=== PATIENT | female | born 1985 | race American Indian/Alaskan Native ===

== ENCOUNTER 2018-01-30 11:57 | Emergency (ER) | payer OTHER ==
[2018-01-30 12:03] VITALS: BMI 27.4
[2018-01-30 12:04] VITALS: RESP 18
[2018-01-30] MEDS ORDERED: Sodium Chloride 0.9% 1,000 ML IV STA (12:08)
[2018-01-30 12:34] LABS: PH,URINE 6.5 (4.7-8.0); URINE BILIRUBIN NEGATIVE (NEGATIVE); URINE BLOOD SMALL (NEGATIVE); URINE GLUCOSE (UA) NEGATIVE (NEGATIVE); URINE LEUKOCYTE ESTERASE NEGATIVE Leu/uL (NEGATIVE); URINE PROTEIN NEGATIVE mg/dL (<30 mg/dL); URINE UROBILINOGEN 0.2 E.U./dL (<1 E.U./dL)
[2018-01-30 12:35] LABS: URINE APPEARANCE CLEAR (CLEAR); URINE COLOR YELLOW (YELLOW)
[2018-01-30 12:49] LABS: URINE BACTERIA MOD (NEG); URINE WBC 0 - 2 /hpf (0-6)
[2018-01-30 12:55] LABS: BASO # 0.01 K/mm3 (0.0-2.0); BASO % 0.2 % (0.0-3.0); EOS # 0.1 (0.0-0.7); EOS % 1.1 % (1.5-5.0); GRAN # 3.27 (1.4-6.5); GRAN % 58.9 % (50.0-68.0); HEMOGLOBIN 11.7 g/dL (12.0-16.0); LYMPH # 1.8 (1.2-3.4); LYMPH % 31.7 % (22.0-35.0); MEAN CELL VOLUME 86.1 fl (80.0-105.0); MEAN CORPUSCULAR HEMOGLOBIN 30.2 pg (25.0-35.0); MONO # 0.5 (0.1-0.6); MONO % 8.1 % (1.0-6.0); RBC 3.88 10^6/uL (3.5-6.1); RED CELL DISTRIBUTION WIDTH 12.1 % (11.5-14.5); WHITE BLOOD COUNT 5.6 10^3/ul (4.5-11.0)
[2018-01-30 13:03] LABS: ALB/GLOB RATIO 1.3 (1.1-1.8); ALBUMIN 4.1 g/dL (3.0-4.8); ALT/SGPT 19 U/L (7-56); AST/SGOT 24 U/L (14-36); BLOOD UREA NITROGEN 8 mg/dL (7-21); CALCIUM 9.3 mg/dL (8.4-10.5); GFR AFRICAN-AMERICAN > 60; GFR NON-AFRICAN AMERICAN > 60
--- NOTE | 2018-01-30 14:01 | US ---
HISTORY: Pain COMPARISON: None available. TECHNIQUE: Transabdominal/transvaginal sonographic evaluation of the pelvis performed. FINDINGS: UTERUS: Measures 10.3 x 5.6 x 7.4 cm. . There is a small approximately 0.5 x 2.2 x 1.9 cm uterine fibroid within the posterior body region. . . ENDOMETRIUM: There is a small fluid collection within the endometrial canal likely representing gestational sac. The gestational sac: MS D = 1.1 cm = 5 weeks 2 days Yolk sac: Not clearly identified. No definitive evidence of pole and no heart rate detected. Collectively these findings could represent very early intrauterine gestation however follow-up serial serum beta HCG and serial pelvic ultrasound recommended to assess for development of viable intrauterine . RIGHT OVARY: What is felt to represent the right ovary 2.5 x 2.1 x 2.2 cm and contains a cyst that measures approximately 1.1 x 0.9 x 1.2 cm. . This structure exhibits normal flow There is a 2nd target like structure adjacent to the right ovary which that approximately 1.7 x 1.5 cm and exhibits a peripheral intense vascular rim of (possible ring of fire sign of ectopic ). This lesion focus must be considered ectopic until proven otherwise. building guard deputy sheriff consultation recommended. Correlation with serum beta HCG . LEFT OVARY: Measures 2.8 x 2.3 x 2.8 cm. No solid mass. Normal flow. FREE FLUID: There is small amount of free fluid seen in the cul de sac. OTHER FINDINGS: None. IMPRESSION: Findings are felt to represent an ectopic right adnexum. These findings discussed with the emergency room JEREMIAS Zamora at approximately 1:45 p.m. with written down and read back verification. building guard deputy sheriff consultation recommended.
--- NOTE | 2018-01-30 14:14 | ED PDOC ---
Arrival/HPI - General Chief Complaint: Abdominal Pain Time Seen by Provider: 01/30/18 12:08 Historian: Patient - History of Present Illness Narrative History of Present Illness (Text): 01/30/18 14:11 32-year-old female A2 presents today with sudden onset of right sided abdominal pain. Patient rates the pain is 10 out of 10 achy and sharp radiating across the abdomen to the right. Patient denies vomiting. Denies chest pain or shortness of breath. She denies vaginal bleeding or vaginal discharge. Patient states her LMP was December 19 and she missed her period in December and was taking tests and had a positive test. Patient states this morning she woke up and developed severe pain. Patient denies fevers or chills. No dizziness or weakness. No medications taken for pain at home. Time/Duration: Other (this AM) Symptom Onset: Sudden Symptom Course: Unchanged Quality: Aching, Stabbing Severity Level: 10 Past Medical History - Provider Review Nursing Documentation Reviewed: Yes - Travel History Have you recently traveled outside [place] w/in the past 3 mons?: No - Infectious Disease Hx of Infectious Diseases: None - Tetanus Immunization Tetanus Immunization: Unknown - Psychiatric Hx Substance Use: No - Anesthesia Hx Anesthesia: No Family/Social History - Physician Review Nursing Documentation Reviewed: Yes Family/Social History: Unknown Family HX Smoking Status: Never Smoked Hx Alcohol Use: Yes Frequency of alcohol use: Socially Hx Substance Use: No Allergies/Home Meds Allergies/Adverse Reactions: Allergies No Known Allergies Allergy (Verified 01/30/18 12:02) Home Medications: Home Meds Medication Instructions Recorded Confirmed No Known Home Med 01/30/18 01/30/18 Review of Systems - Review of Systems Constitutional: absent: Fatigue, Fevers Respiratory: absent: SOB, Cough Cardiovascular: absent: Chest Pain, Palpitations Gastrointestinal: Abdominal Pain. absent: Constipation, Diarrhea, Nausea, Vomiting Genitourinary Female: absent: Dysuria, Vaginal Bleeding, Vaginal Discharge Musculoskeletal: Back Pain. absent: Arthralgias Skin: absent: Rash, Pruritis Neurological: absent: Headache, Dizziness Psychiatric: absent: Depression Physical Exam Vital Signs Reviewed: Yes Vital Signs Temp Pulse Resp BP Pulse Ox 01/30/18 14:32 98.7 F 86 18 125/70 99 01/30/18 12:03 99.3 F 111 H 18 143/55 L 98 Temperature: Afebrile Blood Pressure: Hypertensive Pulse: Tachycardic Respiratory Rate: Normal Appearance: Positive for: Well-Appearing, Non-Toxic, Comfortable Pain Distress: None Mental Status: Positive for: Alert and Oriented X 3 - Systems Exam Head: Present: Atraumatic Mouth: Present: Moist Mucous Membranes Neck: Present: Normal Range of Motion Respiratory/Chest: Present: Clear to Auscultation, Good Air Exchange. No: Respiratory Distress, Accessory Muscle Use Cardiovascular: Present: Normal S1, S2, Peripheal Pulses Present, Tachycardic. No: Regular Rate and Rhythm Abdomen: Present: Tenderness (RLQ tenderness), Guarding (volunatry). No: Distention, Peritoneal Signs, Rebound Back: Present: Normal Inspection. No: CVA Tenderness, Midline Tenderness, Paraspinal Tenderness Upper Extremity: Present: Normal ROM Lower Extremity: Present: Normal ROM Neurological: Present: GCS=15, Speech Normal Skin: Present: Warm, Dry, Normal Color. No: Rashes Psychiatric: Present: Alert, Oriented x 3 Medical Decision Making ED Course and Treatment: 01/30/18 15:10 32-year-old female presents today with a sudden onset of right-sided abdominal pain. Patient is CBC within normal limits CMP potassium 3.3 Beta 13,679 Type: B positive UA positive small blood Ultrasound:FINDINGS: UTERUS: Measures 10.3 x 5.6 x 7.4 cm. . There is a small approximately 0.5 x 2.2 x 1.9 cm uterine fibroid within the posterior body region. . . ENDOMETRIUM: There is a small fluid collection within the endometrial canal likely representing gestational sac. The gestational sac: MS D = 1.1 cm = 5 weeks 2 days Yolk sac: Not clearly identified. No definitive evidence of pole and no heart rate detected. Collectively these findings could represent very early intrauterine gestation however follow- up serial serum beta HCG and serial pelvic ultrasound recommended to assess for development of viable intrauterine . RIGHT OVARY: What is felt to represent the right ovary 2.5 x 2.1 x 2.2 cm and contains a cyst that measures approximately 1.1 x 0.9 x 1.2 cm. . This structure exhibits normal flow There is a 2nd target like structure adjacent to the right ovary which that approximately 1.7 x 1.5 cm and exhibits a peripheral intense vascular rim of ( possible ring of fire sign of ectopic ). This lesion focus must be considered ectopic until proven otherwise. ehs teacher consultation recommended. Correlation with serum beta HCG . LEFT OVARY: Measures 2.8 x 2.3 x 2.8 cm. No solid mass. Normal flow. FREE FLUID: There is small amount of free fluid seen in the cul de sac. OTHER FINDINGS: None. IMPRESSION: Findings are felt to represent an ectopic right adnexum. These findings discussed with the emergency room JEREMIAS Zamora at approximately 1:45 p.m. with written down and read back verification. ehs teacher consultation recommended. pt was given tylenol for pain in er. Case discussed with dr. Hall in depth; she reviewed images and discussed the case with dr. Valadez (radiologist). will transfer patient to [facility] for monitoring for possible ectopic based on clinical presentation. pt reassessment; despite tylenol patient with continued pain. case discussed with dr. Daniels at [place] [facility]; will transfer patient for ob/ loan auditor monitoring for possible ectopic vs heterotopic . consent for transfer obtained. impression; ectopic , heterotopic transfer to [facility] accepting physician dr. Hall, dr daniels Reassessment Condition: Re-examined, Unchanged - Lab Interpretations Lab Results: 01/30/18 12:15 01/30/18 12:15 Lab Results 01/30/18 12:15: WBC 5.6, RBC 3.88, Hgb 11.7 L, Hct 33.4 L, MCV 86.1, MCH 30.2, MCHC 35.0, RDW 12.1, Plt Count 259, MPV 11.0, Gran % 58.9, Lymph % (Auto) 31.7, [place] % (Auto) 8.1 H, Eos % (Auto) 1.1 L, Baso % (Auto) 0.2, Gran # 3.27, Lymph # (Auto) 1.8, [place] # (Auto) 0.5, Eos # (Auto) 0.1, Baso # (Auto) 0.01 01/30/18 12:15: Blood Type B POSITIVE, Antibody Screen Negative, BBK History Checked No verified bt 01/30/18 12:15: Beta HCG, Quant [id number] H 01/30/18 12:15: Sodium 141, Potassium 3.3 L, Chloride 107, Carbon Dioxide 23, Anion Gap 15, BUN 8, Creatinine 0.7, Est GFR ( Amer) > 60, Est GFR (Non- Af Amer) > 60, Random Glucose 98, Calcium 9.3, Total Bilirubin 1.0, AST 24, ALT 19, Alkaline Phosphatase 41, Total Protein 7.4, Albumin 4.1, Globulin 3.3, Albumin/Globulin Ratio 1.3 01/30/18 12:10: Urine Color Yellow, Urine Appearance Clear, Urine pH 6.5, Ur Specific [place] 1.025, Urine Protein Negative, Urine Glucose (UA) Negative, Urine Ketones Negative, Urine Blood Small H, Urine Nitrate Negative, Urine Bilirubin Negative, Urine Urobilinogen 0.2, Ur Leukocyte Esterase Negative, Urine RBC 5 - 10, Urine WBC 0 - 2, Ur Epithelial Cells 6 - 8, Urine Bacteria Mod - RAD Interpretation Radiology Orders: 01/30/18 12:08 OB TRANSVAGINAL [US] Stat - Medication Orders Current Medication Orders: Discontinued Medications Acetaminophen (Tylenol 325mg Tab) 975 mg PO STAT STA Stop: 01/30/18 13:32 Last Admin: 01/30/18 14:18 Dose: 975 mg MAR Pain/Vitals Document 01/30/18 14:18 EQ (Rec: 01/30/18 14:19 EQ [id number]) Pain Reassessment Is This A Pain ReAssessment? No Sleep Is patient sleeping during reassessment? No Presence of Pain Presence of Pain Yes Pain Scale Used Pain Scale Used Numeric Sodium Chloride (Sodium Chloride 0.9%) 1,000 mls @ 999 mls/hr IV .Q1H1M STA Stop: 01/30/18 13:08 Last Admin: 01/30/18 12:21 Dose: 999 mls/hr eMAR Start Stop Document 01/30/18 12:21 EQ (Rec: 01/30/18 12:21 EQ [id number]) Intravenous Solution Start Date 01/30/18 Start Time 12:21 Disposition/Present on Arrival - Present on Arrival Any Indicators Present on Arrival: No History of DVT/PE: No History of Uncontrolled Diabetes: No Urinary Catheter: No History of Decub. Ulcer: No History Surgical Site Infection Following: None - Disposition Have Diagnosis and Disposition been Completed?: Yes Diagnosis: Ectopic Disposition: Transfer HUMU Disposition Time: 15:26 Patient Plan: Transfer To ([facility]) Patient Problems: Current Active Problems Problem Status Onset Ectopic Acute Condition: FAIR Discharge Instructions (ExitCare): Ectopic (DC) Referrals: Shon Concepcion, [Primary Care Provider] - Follow up with primary Forms: Borro (Khmer)
[2018-01-30 14:32] VITALS: O2SAT 99
[2018-01-30 16:06] LABS: PARTIAL THROMBOPLASTIN TIME 27.6 Seconds (25.1-36.5); PROTHROMBIN TIME 11.4 SECONDS (9.4-12.5)
[2018-01-30 16:22] VITALS: BP 137/84; PULSE 90; TEMP 98.8
== END 2018-01-30 16:32 | disposition short-term general hospital (02) ==
LOC: ED 11:57
DX: O00.90 Unspecified ectopic pregnancy without intrauterine pregnancy (principal)
CPT/HCPCS: 76817; 80053; 81001; 84702; 85025; 85610; 85730; 86850; 86900; 87086; 99284; J7030